=== PATIENT | male | born 1935 ===

== ENCOUNTER 2020-08-07 14:31 | Inpatient (IN) | payer OTHER ==
[~2020-08-07] VITALS: Ht 175.3 cm; Wt 68.0 kg
[2020-08-07] MEDS ORDERED: SIMVASTATIN5 MG (15:01)
[2020-08-07] MEDS ORDERED: ADULT LOW DOSE81 M1 (15:01)
[2020-08-07] MEDS ORDERED: FOLIC ACID0.4 MG (15:02)
[2020-08-07] MEDS ORDERED: SERTRALINE20 MG/1 ML (15:04)
[2020-08-09] MEDS ORDERED: VITAMIN B-122500 MCG (13:42)
[2020-08-09] MEDS ORDERED: SUCRALFATE1 GM (13:42)
[2020-08-09] MEDS ORDERED: PANTOPRAZOLE SO40 MG (13:42)
[2020-08-09] MEDS ORDERED: METOCLOPRAMIDE H5 MG (13:42)
[2020-08-09] MEDS ORDERED: GABAPENTIN300 M2 (13:43)
[2020-08-09] MEDS ORDERED: IRBESARTAN75 MG (13:43)
[2020-08-09] MEDS ORDERED: FENOFIBRATE160 MG (13:43)
== END 2020-09-11 19:28 | disposition home or self-care (01) | DRG 374 ==
LOC: ER 14:31 → MEDJ 08-08 12:11 → SURG 08-08 12:11 → MEDJ 08-17 15:17
PROVIDERS: ADMIT Internal Medicine; ATTEND Internal Medicine
PROC: BW2810Z Computerized Tomography (CT Scan) of Head using Low Osmolar Contrast, Unenhanced and Enhanced (ICD-10-PCS; principal; 2020-08-09)
PROC: 05H633Z Insertion of Infusion Device into Left Subclavian Vein, Percutaneous Approach (ICD-10-PCS; 2020-08-10)
PROC: 0FJD8ZZ Inspection of Pancreatic Duct, Via Natural or Artificial Opening Endoscopic (ICD-10-PCS; 2020-08-11)
PROC: 0DB98ZX Excision of Duodenum, Via Natural or Artificial Opening Endoscopic, Diagnostic (ICD-10-PCS; 2020-08-11)
PROC: BF101ZZ Fluoroscopy of Bile Ducts using Low Osmolar Contrast (ICD-10-PCS; 2020-08-17)
PROC: 0F9930Z Drainage of Common Bile Duct with Drainage Device, Percutaneous Approach (ICD-10-PCS; 2020-08-17)
PROC: 0DB98ZX Excision of Duodenum, Via Natural or Artificial Opening Endoscopic, Diagnostic (ICD-10-PCS; 2020-08-18)
PROC: BW2 Imaging, Anatomical Regions, Computerized Tomography (CT Scan) (ICD-10-PCS; 2020-08-20)
PROC: BW2410Z Computerized Tomography (CT Scan) of Chest and Abdomen using Low Osmolar Contrast, Unenhanced and Enhanced (ICD-10-PCS; 2020-08-25)
DX: C17.0 Malignant neoplasm of duodenum (principal); C78.02 Secondary malignant neoplasm of left lung; C78.01 Secondary malignant neoplasm of right lung; K85.80 Other acute pancreatitis without necrosis or infection; N17.9 Acute kidney failure, unspecified; K31.5 Obstruction of duodenum; J90 Pleural effusion, not elsewhere classified; B49 Unspecified mycosis; R78.81 Bacteremia; K80.80 Other cholelithiasis without obstruction; B96.89 Other specified bacterial agents as the cause of diseases classified elsewhere; E86.0 Dehydration; I10 Essential (primary) hypertension; K31.84 Gastroparesis; K43.9 Ventral hernia without obstruction or gangrene; I71.4 Abdominal aortic aneurysm, without rupture; K31.89 Other diseases of stomach and duodenum; K82.8 Other specified diseases of gallbladder; Z20.822 Contact with and (suspected) exposure to COVID-19
CPT/HCPCS: 74182